=== PATIENT | male | born 1955 | race Caucasian/White ===

== ENCOUNTER 2019-05-31 23:02 | Emergency (ER) | payer BC ==
[~2019-05-31] VITALS: Ht 175.3 cm; Wt 88.5 kg
--- NOTE | 2019-05-31 23:20 | NUR ---
PATIENT WAS MSE BY DR LUNA IN ROOM 04A. PATIENT A & O X3.
[2019-06-01 00:12] VITALS: BP 105/75
--- NOTE | 2019-06-01 00:13 | NUR ---
Patient discharged to home in stable conditon. Written and verbal after care instructions given. Patient and friend verbalizes understanding of instructions. Patient taken home by friend.
== END 2019-06-01 00:15 | disposition home or self-care (01) ==
LOC: ER 23:04
DX: S93.401A Sprain of unspecified ligament of right ankle, initial encounter (principal); Z90.89 Acquired absence of other organs; Z88.2 Allergy status to sulfonamides; X50.1XXA Overexertion from prolonged static or awkward postures, initial encounter; Y93.89 Activity, other specified; Y92.89 Other specified places as the place of occurrence of the external cause; Y99.8 Other external cause status
CPT/HCPCS: 73610; A4663